=== PATIENT | female | born 1960 | race African-American/Black ===

== ENCOUNTER → 2016-06-01 | Outpatient (CLI) | payer OTHER ==
[~2016-06-01] MED LIST: AMLO10TA2 PO; ASPI1TAB73 PO; ATOR40TA16 PO; ATOR40TA49 PO; HYDR25TA5 PO; IBUP800T23 PO; METO100T PO; NITR0.4S SL; TYLE325T PO
[2016-06-01 11:18] LABS: HDL CHOLESTEROL 54.8 MG/DL (40.0-60.0)
== END ==
LOC: CLAB 10:26
PROVIDERS: ATTEND Family Medicine
DX: E11.9 Type 2 diabetes mellitus without complications (principal)
CPT/HCPCS: 36415; 80061

== ENCOUNTER → 2016-06-05 | Outpatient (CLI) | payer OTHER ==
[~2016-06-05] MED LIST changes: -ATOR40TA49 PO
--- NOTE | 2016-06-05 15:04 | RADRPT ---
EXAM DATE/TIME: 06/05/2016 08:47 [place] COMPARISON: No previous studies available for comparison. INDICATIONS : Post-menopausal bleeding. MEDICAL HISTORY : Hypercholesterolemia. Myocardial infarction. Hypertension. Fibroids. Vaginal bleeding. CAD. A-fib. Sl eep apnea. SURGICAL HISTORY : Coronary artery stent. section. Cardiac cath. Cardiac ablation. ENCOUNTER: Initial ACUITY: 1 month PAIN SCORE: 4/10 LOCATION: Bilateral pelvis MEASUREMENTS: UTERUS: 9.9 x 7.1 x 4.9 cm ENDOMETRIAL STRIPE: 7 mm RIGHT OVARY: 2.0 x 1.7 x 1.9 cm LEFT OVARY: 2.6 x 1.2 x 2.3 cm FINDINGS: UTERUS: Multiple uterine fibroids. The largest in the body measures approximately 4 cm and shows rim calcific ation. Pedunculated fibroid off of the fundus with the largest measuring 4.6 cm in diameter RIGHT OVARY: Ovary contains no mass or significant cystic lesion. LEFT OVARY: Ovary contains no mass or significant cystic lesion. MISCELLANEOUS: No free fluid. CONCLUSION: 1. Fibroid uterus. Some of the fibroids do show rim calcification. 2. Ovaries are sonographically normal. Cosmo Gunn MD on June 05, 2016 at 15:00 Board Certified Radiologist. This report was verified electronically.
== END ==
LOC: HRAD 08:07
PROVIDERS: ATTEND Family Medicine
DX: N95.0 Postmenopausal bleeding (principal); D25.9 Leiomyoma of uterus, unspecified
CPT/HCPCS: 76856

== ENCOUNTER → 2016-10-16 | Outpatient (CLI) | payer OTHER ==
[~2016-10-16] MED LIST changes: +POTA-163 PO
[2016-10-16 11:11] LABS: AUTOMATED NEUTROPHIL # 4.7 TH/MM3 (1.8-7.7); BASOPHIL % 0.6 % (0.0-2.0); EOSINOPHIL # 0.1 TH/MM3 (0-0.4); EOSINOPHIL % 1.6 % (0.0-4.0); HEMO FLAGS DIFF FINAL; LYMPH % 27.2 % (9.0-44.0); MEAN CELL VOLUME 85.4 FL (80.0-100.0); MEAN CORPUSCULAR HEMOGLOBIN 29.2 PG (27.0-34.0); MEAN CORPUSCULAR HGB CONC 34.2 % (32.0-36.0); MONO % 8.4 % (0.0-8.0); NEUT % 62.2 % (16.0-70.0); PLATELET COUNT 308 TH/MM3 (150-450); RED BLOOD COUNT 4.56 MIL/MM3 (4.00-5.30); RED CELL DISTRIBUTION WIDTH 14.6 % (11.6-17.2); WHITE BLOOD COUNT 7.5 TH/MM3 (4.0-11.0)
[2016-10-16 11:13] LABS: BLOOD, URINE NEG (NEG); COMMENT (UR) CULT NOT INDICATED; CULTURE IF INDICATED CULT NOT INDICATED; GLUCOSE,URINE NEG (NEG); HYALINE CAST, URINE 21 /lpf (RARE); KETONE, URINE NEG (NEG); MUCUS URINE MOD /lpf (OCC); NITRITE,URINE NEG (NEG); PH, URINE 5.5 (5.0-8.5); SQUAMOUS EPITHELIAL CELL URINE 1 /hpf (0-5); URINE COLOR YELLOW (YELLW/STRAW)
== END ==
LOC: CLAB 10:44
PROVIDERS: ATTEND Family Medicine
DX: M25.561 Pain in right knee (principal); B37.9 Candidiasis, unspecified
CPT/HCPCS: 36415; 81001; 85025